=== PATIENT | male | born 1995 ===

== ENCOUNTER 2021-06-19 12:16 | Emergency (ER) | payer SELFPAY ==
[2021-06-19 12:35] VITALS: BP 135/81; PULSE 78; RESP 16; TEMP 36.1; O2SAT 98; BMI 25.7
--- NOTE | 2021-06-19 13:51 | ED_ITS ---
HPI - Male Genitourinary General Chief complaint: Urogenital-Male Stated complaint: STD check Time Seen by Provider: 06/19/21 13:51 Source: patient Mode of arrival: ambulatory Limitations: language barrier History of Present Illness HPI Narrative: 25-year-old male presents for concerns for sexually transmitted disease. Reports he had unprotected sex 1 week ago with someone who was positive for chlamydia. Denies fever, dysuria, penile discharge, rashes or swelling on his genitals, testicular pain, testicular masses. Related Data Previous Rx's Medication Instructions Recorded doxycycline hyclate 100 mg tablet 100 mg PO BID 7 Days #14 tab 06/19/21 Allergies Allergy/AdvReac Type Severity Reaction Status Date / Time No Known Allergies Allergy Unverified 02/07/20 19:06 [No Known Allergies*] Review of Systems Review of Systems: Constitutional : No Weight loss, No Fever, No Chills, No Night Sweats,No Fatigue, No Malaise ENT/Mouth : No Hearing loss, No Ear Pain, No Nasal Congestion, NoSinus Pain, No Hoarseness, No sore throat, No Rhinorrhea, NoSwallowing Difficulty Eyes: No Eye Pain, No Swelling, No Redness, No Foreign Body, NoDischarge, No Vision Changes Cardiovascular : No Chest Pain, No SOB, No Dyspnea on Exertion, NoOrthopnea, No Edema, No Palpitations Respiratory : No Cough, No Sputum, No Wheezing, No Smoke Exposure, No Dyspnea Gastrointestinal : No Nausea, No Vomiting, No Diarrhea, NoConstipation, No abdominal Pain, No Hematochezia, No Melena Genitourinary : no irregular bleeding, No Dysuria, No UrinaryFrequency, No Hematuria, No Urinary Incontinence, No Urgency, No FlankPain, No Urinary Flow Ch anges, No Hesitancy Musculoskeletal : No joint pain, No Myalgias, No Joint Swelling Skin : No Skin Lesions, No rash Neuro : No Weakness, No Numbness, No Paresthesias, No Loss ofConsciousness, No Dizziness, No Headache Psych : mild anxiety, tremors in hands, , No Depression, No SI/HI/AH/VH, No Social Issues, Endocrine : No Polyuria, No Polydipsia, No Temperature Intolerance PMFSH Social History Social History Advance Directives: No Physical Exam Vital Signs: Vital Signs: Last Vital Signs Temp 97 F 06/19/21 12:35 Pulse 78 06/19/21 12:35 Resp 16 06/19/21 12:35 BP 135/81 06/19/21 12:35 Pulse Ox 98 06/19/21 12:35 BMI result Body Mass Index 25.7 Const: General: cooperative, no acute distress, well developed, alert and awake Nutritional Appearance: well nourished Orientation/consciousness: patient oriented x3 Limitations: no limitations Eyes: Conjunctivae: conjunctivae normal Pupils: Equal, round and reactive pupils present EOM: EOMs intact bilaterally Neck: Neck: Yes full ROM, Yes no lymphadenopathy and Yes supple Resp: Effort & Inspection: normal respiratory effort and able to speak in complete sentences Auscultation: clear to auscultation bilaterally, no crackles, no rales, no rhonchi and no wheezes Cardio: Rate: regular rate Rhythm: regular rhythm Heart sounds: S1 normal heart sound present and S2 normal heart sound present GI: Inspection: Yes normal to inspection Palpation (GI): Soft to palpation, nontender, no guarding and not rigid Percussion: Yes normal to percussion Auscultation: normal bowel sounds Skin: General skin exam: no rashes or lesions noted Neuro: General: patient oriented x3, tone normal and moves all extremities Cranial nerves: Yes Equal, round and reactive pupils present Extrem: General: Yes normal to inspection and Yes full ROM Psych: Appearance: grossly normal Affect: normal affect Attitude: cooperative Thought process: Normal thought process present Course Course Course Narrative: 25-year-old Guinean-speaking male presents for concern for kd sexually transmitted disease from unprotected sex 1 week a go. A ordered gonorrhea chlamydia urine, getting herpes, syphilis, hepatitis panel. Patient concerned for results of tests, told patient to call Hospital Tuesday if he has not heard of any results. Told patient we would not call him if results were negative. Counseled patient we will treat him empirically with doxycycline and ceftr iaxone. Gave patient [facility] form to a follow-up for HIV testing all questions answered, patient given return precautions Discharge Plan Discharge Clinical Impression: Exposure to sexually transmitted disease (STD) Patient Disposition: Home, Self-Care Instructions: Chlamydia (ED), Sexually Transmitted Diseases (ED), Male Condom Use (ED), Safe Sex Practices (ED) Additional Instructions: we have tested you today for gonorrhea, chlamydia, syphilis, herpes, and hepatitis. If you would like to be tested for HIV, please contact the [facility] for your given. I have prescribed 1 week of antibiotics to your pharmacy, please start them today. We will call you if any results return positive. If you want to know results and we have not called you, please call us on Tuesday. Please return if you have penile sores, discharge, Pain with urination, fevers, or any other new or concerning symptoms hoy le hemos hecho la prueba de gonorrea, clamidia, s?filis, herpes y hepatitis. Si desea hacerse la prueba del VIH, [facility] para obtener landeros informaci?n. Le he recetado 1 semana de antibi?ticos a landeros farmacia, por favor comience hoy. Lo llamaremos si alg?n resultado es positivo. Si quieres saber resultados y no te hemos llamado, por favor ll?stas el es. Regrese si tiene llagas en el pene, secreci?n, dolor al orinar, fiebre o cualquier otro s?ntoma nuevo o preocupante. Prescriptions: New doxycycline hyclate 100 mg tablet 100 mg PO BID 7 Days Qty: 14 0RF Print Language: Guinean
[2021-06-19] MEDS: cefTRIAXone sodium 500 MG, Lidocaine HCl 1 % MPF 1 ML IM (14:35)
[2021-06-19 15:22] LABS: HBS Num1 55.53 mIU/mL (0-7.99); HBc Num1 0.05 S/CO (0.00-0.79); Hepatitis B Core Antibody Nonreactive (Nonreactive); Hepatitis B Surface Antigen Negative (Negative); ~HepC Num1 0.31 S/CO (0.00-0.79); ~Hepatitis B Surface Antibody REACTIVE (Nonreactive); ~Hepatitis C Antibody Nonreactive (Nonreactive)
[2021-06-19 15:26] LABS: CT PCR DETECTED (Not Detect.); NG PCR NOT DETECTED (Not Detect.)
[2021-06-22 03:58] LABS: Syphilis Screen Nonreactive (Nonreactive)
[2021-06-24 03:45] LABS: Hepatitis A Antibody IgM 0.18 Index (0-0.79); ~Hepatitis A Antibody IgM Nonreactive (Nonreactive)
[2021-06-25 18:51] LABS: HSV 1 IgM IFA Negative (Negative); HSV 2 IgM IFA Negative (Negative)
== END 2021-06-19 14:54 | disposition home or self-care (01) ==
PROVIDERS: Physician Assistant; Emergency Provider Emergency Medicine
DX: Z20.2 Contact with and (suspected) exposure to infections with a predominantly sexual mode of transmission (principal); Z79.899 Other long term (current) drug therapy
CPT/HCPCS: 36415; 86695; 86696; 86704; 86706; 86709; 86780; 86803; 87340; 87491; 87591; 96372; 99284; J0696

== ENCOUNTER 2021-08-15 12:59 | Emergency (ER) | payer SELFPAY ==
[2021-08-15 13:05] VITALS: BP 132/87; PULSE 77; RESP 18; TEMP 36.6; O2SAT 98; BMI 25.0
--- NOTE | 2021-08-15 14:14 | ED_ITS ---
HPI - Male Genitourinary General Chief complaint: Urogenital-Male Stated complaint: Multiple complaints Time Seen by Provider: 08/15/21 14:04 Source: patient Mode of arrival: ambulatory Limitations: no limitations History of Present Illness HPI Narrative: 25 y/o male presents to the ER for evaluation of possible STDs. He reports a history of Chlamydia a few months ago that was treated with antibiotics. He states his girlfriend just tested positive for chlamydia. He states for the last couple of days he has had pain at the end of his urinary stream as well as a slight whitish discharge from his penis that started this morning. He is worried he may have chlamydia again. he denies any new nausea, vomiting, abdominal pain, testicular pain. No penile lesions. MD Complaint: penile discharge and dysuria Onset (ago): day(s) Duration: intermittent Severity: mild Severity scale (1-10): 4 Quality: burning Relieving factors: none Exacerbating factors: urination Associated symptoms: Reports denies other symptoms Related Data Sexually active: Yes Previous Rx's Medication Instructions Recorded doxycycline hyclate 100 mg tablet 100 mg PO BID 7 Days #14 tab 06/19/21 doxycycline hyclate 100 mg tablet 100 mg PO BID #14 tab 08/15/21 Allergies Allergy/AdvReac Type Severity Reaction Status Date / Time No Known Allergies Allergy Unverified 02/07/20 19:06 [No Known Allergies*] Review of Systems Review of Systems: Constitutional: No Fever, No Chills ENT/Mouth: No sore throat Cardiovascular: No Chest Pain, No SOB Gastrointestinal: No Nausea, No Vomiting, No abdominal Pain Genitourinary: + Dysuria, No Urinary Frequency, No Hematuria, +penile discharage Musculoskeletal: No joint pain, No Myalgias Skin: No Skin Lesions, No rash Psych: +Anxiety/Panic, No Depression Heme/Lymph: No Lymphadenopathy Endocrine: No Polyuria, No Polydipsia PMFSH Social History Social History Advance Directives: No Advance Directives Information Provided: No Physical Exam Vital Signs: Vital Signs: Last Vital Signs Temp 98 F 08/15/21 13:05 Pulse 77 08/15/21 13:05 Resp 18 08/15/21 13:05 BP 132/87 08/15/21 13:05 Pulse Ox 98 08/15/21 13:05 BMI result Body Mass Index 25.0 Appearance: Alert. Oriented X3. No acute distress. HEENT: normal inspection CVS: Normal heart rate and rhythm. Pulses normal. Respiratory: No respiratory distress. Skin: Skin warm and dry. Normal skin color. Normal skin turgor. No rashes. Abd: soft, nontender, nondistended Gentialia: normal inspection, penis uncirumsized, foreskin easily retracted, no discharge at urethral meatus. No penile lesions. testes descended and nontender, no palpable masses Extremities: normal inspection, normal ROM x4 Neuro: Oriented X 3. Grossly normal, nonfocal Course Course Course Narrative: 25 y/o male presenting with intermittent painful urination and small amount of white penile discharge x2 days. His girlfriend has Chlamydia per his report. He is agreeable to empiric treatment for both Gonorrhea and Chlamydia. Will check UA for UTI and send PCR for Ct/NG. Will treat Reevaluation(s) Reevaluation #1: UA negative. Stable for d/c with 1 week of PO doxycycline. Given info for [facility] for follow up. [facility] - Male Genitourinary Lab Data Labs: Lab Results 08/15/21 Range/Units 14:38 Urine Color YELLOW Urine Appearance CLEAR Urine pH 6.5 (5.0-8.0) Ur Specific [place] 1.020 (1.005-1.025) Urine Protein NEG (NEG-TRACE) MG/DL Urine Glucose (UA) NEG (NEG) MG/DL Urine Ketones NEG (NEG) MG/DL Urine Blood NEG (NEG) Urine Nitrite NEG (NEG) Ur Leukocyte Esterase NEG (NEG) Critical Care Time Critical Care Time Critical Care Time: No Discharge Plan Discharge Clinical Impression: Urethritis Patient Disposition: Home, Self-Care Instructions: Chlamydia (ED) Additional Instructions: Your urine test did not show any evidence of a urinary tract infection. Your urine test was sent for gonorrhea and chlamydia, if either of these are positive we will call you. You are being treated for these possible sexually transmitted diseases, take the prescribed antibiotic as directed for 1 full week. Recommend following up with the [facility] for further evaluation and testing. If you develop new or worsening symptoms call 911 or come back to the ER for further evaluation. Prescriptions: New doxycycline hyclate 100 mg tablet 100 mg PO BID Qty: 14 0RF No Action doxycycline hyclate 100 mg tablet 100 mg PO BID 7 Days Qty: 14 0RF
[2021-08-15] MEDS: Azithromycin 500 MG TABLET 1000 MG PO (14:45)
[2021-08-15 14:46] LABS: Appearance Urine CLEAR; Color Urine YELLOW; Glucose Urine UA NEG (NEG); Leukocyte Esterase Urine NEG (NEG); Nitrite Urine NEG (NEG); PH 6.5 (5.0-8.0); Urine Blood NEG (NEG); Urine Ketones NEG (NEG); Urine Protein NEG (NEG-TRACE)
[2021-08-15] MEDS: cefTRIAXone sodium 500 MG, Lidocaine HCl 1 % MPF 1 ML IM (14:47)
[2021-08-15 17:34] LABS: CT PCR NOT DETECTED (Not Detect.); NG PCR NOT DETECTED (Not Detect.)
== END 2021-08-15 15:29 | disposition home or self-care (01) ==
PROVIDERS: Physician Assistant; Emergency Provider Emergency Medicine
DX: N34.2 Other urethritis (principal); Z20.2 Contact with and (suspected) exposure to infections with a predominantly sexual mode of transmission; R36.9 Urethral discharge, unspecified
CPT/HCPCS: 81003; 87491; 87591; 96372; 99284; J0696

== ENCOUNTER 2022-11-13 01:31 | Emergency (ER) | payer OTHER, SELFPAY ==
--- NOTE | ~2022-11-13 | US_ITS ---
EXAMINATION: US SCROTUM CLINICAL INFORMATION: Swollen left testicle. Question torsion. COMPARISON: None available. TECHNIQUE: A sonogram of the scrotum was performed assessing canseco-scale appearance and color Doppler flow. Spectral Doppler analysis of the arterial and venous flow were performed in the testes bilaterally. FINDINGS: RIGHT: Right testicle measures 3.9 x 2.0 x 2.0 cm, volume 11.3 mL. No focal testicular parenchymal lesions are visualized. Spectral Doppler analysis of the arterial and venous flow is normal in the right testis. Right epididymal head is normal in size. No right hydrocele or varicocele is seen. Right epididymal Doppler flow is normal. LEFT: Left testicle measures 3.6 x 2.3 x 2.4 cm, volume 10.7 mL. No focal testicular parenchymal lesions are visualized. Spectral Doppler analysis of the arterial and venous flow is normal in the left testis. Lateral to the left testicle there is a 6.3 x 3.0 x 3.6 cm mixed echogenic area with moderate minimal color flow. Left epididymal head is normal in size. No left hydrocele or varicocele is seen. Left epididymal Doppler flow is normal. US/US scrotum IMPRESSION: Normal testes and normal epididymis. Echogenic area lateral to left scrotum question, appendix of the testes, hematoma or lymph node. Diid patient have trauma.
--- NOTE | ~2022-11-13 | US_ITS ---
EXAMINATION: US SCROTUM CLINICAL INFORMATION: Swollen left testicle. Question torsion. COMPARISON: None available. TECHNIQUE: A sonogram of the scrotum was performed assessing canseco-scale appearance and color Doppler flow. Spectral Doppler analysis of the arterial and venous flow were performed in the testes bilaterally. FINDINGS: RIGHT: Right testicle measures 3.9 x 2.0 x 2.0 cm, volume 11.3 mL. No focal testicular parenchymal lesions are visualized. Spectral Doppler analysis of the arterial and venous flow is normal in the right testis. Right epididymal head is normal in size. No right hydrocele or varicocele is seen. Right epididymal Doppler flow is normal. LEFT: Left testicle measures 3.6 x 2.3 x 2.4 cm, volume 10.7 mL. No focal testicular parenchymal lesions are visualized. Spectral Doppler analysis of the arterial and venous flow is normal in the left testis. Lateral to the left testicle there is a 6.3 x 3.0 x 3.6 cm mixed echogenic area with moderate minimal color flow. Left epididymal head is normal in size. No left hydrocele or varicocele is seen. Left epididymal Doppler flow is normal. US/US scrotum doppler IMPRESSION: Normal testes and normal epididymis. Echogenic area lateral to left scrotum question, appendix of the testes, hematoma or lymph node. Diid patient have trauma.
[2022-11-13 01:59] VITALS: BP 104/61; PULSE 60; RESP 16; TEMP 36.2; O2SAT 98; BMI 22.7
[2022-11-13 02:25] LABS: Appearance Urine Clear; Color Urine Yellow; Glucose Urine UA Negative (Negative); Leukocyte Esterase Urine Negative (Negative); Nitrite Urine Negative (Negative); PH 5.5 (5.0-9.0); Specific Gravity - Urine >= 1.030 (1.005-1.025); Urine Blood Negative (Negative); Urine Ketones Trace mg/dL (Negative); Urine Protein Negative (Neg-Trace)
[2022-11-13 02:30] LABS: Bacteria Urine None Seen (None Seen); Hyaline Casts Urine 0-2 /LPF (0-2); RBC Urine 0-2 /HPF (0-2); Squamous Epithelial Cell Urine 0-2 /HPF (0-2); WBC Urine 0-5 /HPF (0-5)
--- NOTE | 2022-11-13 03:01 | ED_ITS ---
HPI - Male Genitourinary General Chief complaint: Urogenital-Male Stated complaint: Genital Pain Time Seen by Provider: 11/13/22 02:44 History of Present Illness HPI Narrative: Patient is a 26-year-old male complaining of pain to his left testicle after sexual activity. Patient claims that during intercourse he had sudden onset of swelling and pain to the left testicle pain was sharp. Associated with swelling to the testicle. Patient claims that he had trauma to that area. No pain to the penis. No pain prior. Patient has 1 sexual partner. Related Data Previous Rx's Medication Instructions Recorded doxycycline hyclate 100 mg tablet 100 mg PO BID 7 days #14 tabs 06/19/21 doxycycline hyclate 100 mg tablet 100 mg PO BID #14 tabs 08/15/21 doxycycline hyclate 100 mg tablet 100 mg PO BID #14 tabs 08/15/21 ibuprofen 400 mg tablet 400 mg PO Q6H PRN pain #20 tabs 11/13/22 Allergies Allergy/AdvReac Type Severity Reaction Status Date / Time No Known Allergies Allergy Unverified 02/07/20 19:06 [No Known Allergies*] Review of Systems Review of Systems: Positive pain to the left testicle Yes all other systems are reviewed and are negative [facility] Past Medical History Attestation statement: The following information was validated with the patient. Social History Social History Advance Directives: No Advance Directives Information Provided: No Physical Exam Vital Signs: Vital Signs: Last Vital Signs Temp 98.4 F 11/13/22 03:42 Pulse 58 11/13/22 03:42 Resp 16 11/13/22 03:42 BP 118/54 L 11/13/22 03:42 Pulse Ox 98 11/13/22 03:42 O2 Del Method Room Air 11/13/22 03:42 BMI result Body Mass Index 22.7 Appearance: Alert. Oriented X3. No acute distress. Eyes: Pupils equal, round and reactive to light. ENT: Pharynx normal. Neck: Normal inspection. Neck supple. No lymph nodes noted. No crepitus CVS: Normal heart rate and rhythm. Pulses normal. Normal S1 and S2 Respiratory: No respiratory distress. Breath sounds normal. No Wheezing. No rales Abdomen: Soft and nontender. No rigidity. No distention. good BS x4 Examination of the genitalia there is swelling to the left scrotum noted. No tenderness on palpation. No hernia that was palpable. No discharge on stripping of the penis. No gross fracture penis noted. No tenderness on palpation of the penis. Skin: Skin warm and dry. Normal skin color. Normal skin turgor. Extremities: No lower extremity edema. Neurovascular intact to all extremities. No Lacerations. No Rash Neuro: Oriented X 3. No motor deficit. No sensory deficit. Moving all extermit ies. No slurred speech Medical Decision Making Medical Decision Making [facility] Narrative: Patient's history not consistent with having a penile fracture. There is swelling around the left testicle. An ultrasound was done. The ultrasound showed no evidence of torsion. There is an area that is most likely consistent with a hematoma. Will give patient Motrin. Will have patient rest elevate. Follow up with Urology on an outpatient basis. Differential Diagnosis Epididymitis, orchitis, contusion, fracture penis Lab Data [facility] Lab Attestation statement: I reviewed the patient's lab results. 11/13/22 03:48 11/13/22 03:48 Labs: Lab Results 11/13/22 11/13/22 11/13/22 Range/Units 02:18 03:48 03:48 WBC 11.5 H (4.8-10.8) X10*3/uL RBC 4.98 (4.60-5.80) X10*6/uL Hgb 13.1 L (14.0-18.0) g/dl Hct 41.6 L (42.0-52.0) % MCV 83.5 (80.0-98.0) fL MCH 26.3 L (27.0-33.0) pg MCHC 31.5 (31.0-36.0) g/dl RDW 13.2 (11.0-16.0) % Plt Count 268 (160-400) X10*3/uL MPV 10.4 (9.4-12.4) fL Immature Gran % (Auto) 0.2 (0.0-0.4) % Neut % (Auto) 76.4 H (45-73) % Lymph % (Auto) 14.1 L (20-40) % [place] % (Auto) 8.4 (2-11) % Eos % (Auto) 0.4 (0-4) % Baso % (Auto) 0.5 (0-2) % Lymph # (Auto) 1.6 (1.2-4.9) X10*3/uL [place] # (Auto) 1.0 (0.1-1.2) X10*3/uL Eos # (Auto) 0.1 (0.0-0.4) X10*3/uL Baso # (Auto) 0.1 (0.0-0.2) X10*3/uL Abs Immat Gran (auto) 0.02 (0.00-0.03) X10*3/uL Absolute Neuts (auto) 8.8 H (2.0-8.3) x10*3/uL Absolute Nucleated RBC 0.000 (0.0-0.012) X10*3/uL Nucleated RBC % (auto) 0.0 (0.0-0.2) /100WBC Sodium 140 (135-145) mmol/L Potassium 4.3 (3.3-5.1) mmol/L Chloride 104 (96-108) mmol/L Carbon Dioxide 28 (22-29) mmol/L Anion Gap 12 (12-20) BUN 19 H (9-16) mg/dL Creatinine 1.07 (0.5-1.4) mg/dL Estim Creat Clear Calc 96.4 Estimated GFR > 60 Random Glucose 73 (60-115) mg/dL Calcium 10.2 (8.4-10.2) mg/dL Urine Color Yellow Urine Appearance Clear Urine pH 5.5 (5.0-9.0) Ur Specific [place] >= 1.030 H (1.005-1.025) Urine Protein Negative (Neg-Trace) mg/dL Urine Glucose (UA) Negative (Negative) mg/dL Urine Ketones Trace (Negative) mg/dL Urine Blood Negative (Negative) Urine Nitrite Negative (Negative) Ur Leukocyte Esterase Negative (Negative) Urine RBC 0-2 (0-2) /HPF Urine WBC 0-5 (0-5) /HPF Ur Squamous Epith Cells 0-2 (0-2) /HPF Urine Bacteria None Seen (None Seen) Hyaline Casts 0-2 (0-2) /LPF Radiology Impression Discussion of test interpretation with radiology: I have reviewed the radiologist's reading. Independent Historian Clinical information obtained from an independent historian. History obtained from or confirmed by: Spouse Prescription Management I considered prescription management with: Pain Medication Discharge Plan Discharge Clinical Impression: Hematoma of scrotum Patient Disposition: Home, Self-Care Instructions: Hematoma (ED) Prescriptions: New ibuprofen 400 mg tablet 400 mg PO Q6H PRN (Reason: pain) Qty: 20 0RF No Action doxycycline hyclate 100 mg tablet 100 mg PO BID 7 Days Qty: 14 0RF doxycycline hyclate 100 mg tablet 100 mg PO BID Qty: 14 0RF doxycycline hyclate 100 mg tablet 100 mg PO BID Qty: 14 0RF Referrals: Tye Díaz MD [Physician] - 2 days Print Language: Azeri
[2022-11-13 03:42] VITALS: BP 118/54; PULSE 58; RESP 16; TEMP 36.9; O2SAT 98
[2022-11-13 03:53] LABS: Basophils Absolute Auto 0.1 X10*3/uL (0.0-0.2); Basophils Percent Auto 0.5 % (0-2); Eosinophils Absolute Auto 0.1 X10*3/uL (0.0-0.4); Eosinophils Percent Auto 0.4 % (0-4); Hematocrit 41.6 % (42.0-52.0); Hemoglobin 13.1 g/dl (14.0-18.0); Imm Gran Abs Auto 0.02 X10*3/uL (0.00-0.03); Imm Gran Pct Auto 0.2 % (0.0-0.4); Lymphocytes Absolute Auto 1.6 X10*3/uL (1.2-4.9); Lymphocytes Percent Auto 14.1 % (20-40); MANUAL DIFF FLAG NO; Mean Corpuscular HGB Conc 31.5 g/dl (31.0-36.0); Mean Corpuscular Hemoglobin 26.3 pg (27.0-33.0); Mean Corpuscular Volume 83.5 fL (80.0-98.0); Mean Platelet Volume 10.4 fL (9.4-12.4); Monocytes Percent Auto 8.4 % (2-11); Neutrophils Absolute Auto 8.8 x10*3/uL (2.0-8.3); Neutrophils Percent Auto 76.4 % (45-73); Platelet Count 268 X10*3/uL (160-400); Red Blood Count 4.98 X10*6/uL (4.60-5.80); Red Cell Distribution Width 13.2 % (11.0-16.0); White Blood Count 11.5 X10*3/uL (4.8-10.8)
[2022-11-13 04:08] LABS: Anion Gap 12 (12-20); Blood Urea Nitrogen 19 mg/dL (9-16); Calcium 10.2 mg/dL (8.4-10.2); Carbon Dioxide 28 mmol/L (22-29); Chloride 104 mmol/L (96-108); Creatinine Clr Calc Pharmacy 96.4; Estimated Glomerular Filt Rate > 60; Glucose Random 73 mg/dL (60-115); Potassium 4.3 mmol/L (3.3-5.1); Sodium 140 mmol/L (135-145)
[2022-11-13 05:23] VITALS: BP 116/70; PULSE 64; RESP 16; TEMP 36.5; O2SAT 98
[2022-11-13 06:01] LABS: CT PCR NOT DETECTED (Not Detect.); NG PCR NOT DETECTED (Not Detect.)
== END 2022-11-13 05:58 | disposition home or self-care (01) ==
PROVIDERS: Emergency Provider Emergency Medicine Emergency Medical Services
DX: S30.22XA Contusion of scrotum and testes, initial encounter (principal); X58.XXXA Exposure to other specified factors, initial encounter; N50.812 Left testicular pain; Y93.89 Activity, other specified; Y92.032 Bedroom in apartment as the place of occurrence of the external cause; Y99.9 Unspecified external cause status
CPT/HCPCS: 0353U; 36415; 76870; 80048; 81001; 85025; 93975; 99283; 99284